=== PATIENT | female | born 1975 | race Caucasian/White ===

== ENCOUNTER 2017-06-22 10:32 | Emergency (ER) | payer OTHER | END 2017-06-22 10:55 | disposition home or self-care (01) | LOC: E/R 10:32 | DX: J30.9 Allergic rhinitis, unspecified (principal); F41.9 Anxiety disorder, unspecified | CPT/HCPCS: 99283; Z7502 ==

== ENCOUNTER 2017-08-05 03:58 | Emergency (ER) | payer OTHER ==
[2017-08-05] MEDS: LORAZEPAM 1 MG TAB PO (05:01)
[2017-08-05] MEDS: SOD CHLORIDE 0.9% 1,000 ML IV (05:03)
[2017-08-05] MEDS: ONDANSETRON 4 MG INJ IV (05:03)
[2017-08-05 05:31] LABS: ADD MAN DIFF? NO
[2017-08-05 05:34] LABS: WHITE BLOOD COUNT 11.9 10^3/ul (4.8-10.8)
[2017-08-05 05:34] LABS: BASOPHIL # 0.1 10^3/ul (0.0-0.1); BASOPHILS % 0.5 % (0.0-2.0); EOSINOPHILS # 0.1 10^3/ul (0.0-0.5); EOSINOPHILS % 0.8 % (0.0-7.0); HEMATOCRIT 39.7 % (37.0-47.0); HEMOGLOBIN 13.3 g/dl (12.0-16.0); LYMPHOCYTES # 3.5 10^3/ul (0.8-2.9); LYMPHOCYTES % 29.7 % (15.0-51.0); MEAN CORPUSCULAR HEMOGLOBIN 28.2 pg (29.0-33.0); MEAN CORPUSCULAR HGB CONC 33.5 g/dl (32.0-37.0); MEAN CORPUSCULAR VOLUME 84.3 fl (82.0-101.0); MEAN PLATELET VOLUME 10.3 fl (7.4-10.4); MONOCYTE # 1.1 10^3/ul (0.3-0.9); MONOCYTES % 9.5 % (0.0-11.0); NEUTROPHILS % 59.1 % (39.0-77.0); PLATELET COUNT 299 10^3/UL (140-415); RED BLOOD COUNT 4.71 10^6/ul (4.20-5.40); RED CELL DISTRIBUTION WIDTH 13.2 % (11.5-14.5)
[2017-08-05 05:42] LABS: ANION GAP 17 (8-16); BLOOD UREA NITROGEN 10 mg/dl (7-20); CALCIUM 9.4 mg/dl (8.4-10.2); CARBON DIOXIDE 26 mmol/L (21-31); CHLORIDE 103 mmol/L (97-110); CREATININE 0.77 mg/dl (0.44-1.00); GLUCOSE 126 mg/dl (70-220); POTASSIUM 3.5 mmol/L (3.5-5.1); SODIUM 142 mmol/L (135-144)
[2017-08-05 05:58] LABS: ADD UMIC YES; UR ASCORBIC ACID NEGATIVE (NEGATIVE); UR BILIRUBIN (Dip) NEGATIVE (NEGATIVE); UR BLOOD (Dip) NEGATIVE (NEGATIVE); UR CLARITY SLIGHTLY CLOUDY (CLEAR); UR COLOR YELLOW (YELLOW); UR GLUCOSE (Dip) NEGATIVE (NEGATIVE); UR KETONES (Dip) NEGATIVE (NEGATIVE); UR LEUKOCYTE ESTERASE (Dip) 1+ Leu/ul (NEGATIVE); UR NITRITE (Dip) NEGATIVE (NEGATIVE); UR RBC 3 /HPF (0-5); UR SPECIFIC GRAVITY (Dip) 1.009 (1.003-1.030); UR SQUAMOUS EPITHELIAL CELL FEW /HPF (FEW); UR TOTAL PROTEIN (Dip) NEGATIVE (NEGATIVE); UR UROBILINOGEN (Dip) NEGATIVE (NEGATIVE); UR WBC 5 /HPF (0-5)
== END 2017-08-05 06:40 | disposition home or self-care (01) ==
LOC: E/R 03:58
DX: R09.89 Other specified symptoms and signs involving the circulatory and respiratory systems (principal); I10 Essential (primary) hypertension
CPT/HCPCS: 36415; 80048; 81001; 85025; 93005; 99285-25

== ENCOUNTER 2018-01-04 22:41 | Emergency (ER) | payer OTHER | END 2018-01-04 23:21 | disposition home or self-care (01) | LOC: FTE 22:41 | DX: R14.2 Eructation (principal); I10 Essential (primary) hypertension; J30.9 Allergic rhinitis, unspecified; K21.9 Gastro-esophageal reflux disease without esophagitis | CPT/HCPCS: 99283 ==

== ENCOUNTER 2018-04-17 06:15 | Emergency (ER) | payer OTHER | END 2018-04-17 07:20 | disposition home or self-care (01) | LOC: FTE 06:15 | DX: F41.9 Anxiety disorder, unspecified (principal); I10 Essential (primary) hypertension | CPT/HCPCS: 99283; Z7502 ==

== ENCOUNTER 2018-04-22 11:32 | Emergency (ER) | payer OTHER | END 2018-04-22 12:48 | disposition home or self-care (01) | LOC: E/R 11:32 | DX: F41.9 Anxiety disorder, unspecified (principal); I10 Essential (primary) hypertension | CPT/HCPCS: 99282; Z7502 ==

== ENCOUNTER 2018-04-23 16:46 | Emergency (ER) | payer OTHER ==
[2018-04-23] MEDS: LORAZEPAM 0.5 MG TAB PO (21:04)
[2018-04-23] MEDS: DIPHENHYDRAMINE 50 MG INJ IM (21:04)
[2018-04-23] MEDS: FAMOTIDINE 20 MG TAB PO (21:04)
== END 2018-04-23 21:17 | disposition home or self-care (01) ==
LOC: FTE 16:46
DX: T78.1XXA Other adverse food reactions, not elsewhere classified, initial encounter (principal); I10 Essential (primary) hypertension; F41.9 Anxiety disorder, unspecified
CPT/HCPCS: 96372; 99284-25

== ENCOUNTER 2018-04-27 13:36 | Emergency (ER) | payer OTHER ==
[2018-04-27] MEDS: LORAZEPAM 1 MG TAB PO (14:10)
[2018-04-27 14:31] LABS: ANION GAP 13 (5-13); BLOOD UREA NITROGEN 18 mg/dl (7-20); CALCIUM 9.7 mg/dl (8.4-10.2); CARBON DIOXIDE 24 mmol/L (21-31); CHLORIDE 104 mmol/L (97-110); CREATININE 0.98 mg/dl (0.44-1.00); Estimated GFR > 60 mL/min (>60); GLUCOSE 102 mg/dl (70-220); POTASSIUM 3.8 mmol/L (3.5-5.1); SODIUM 141 mmol/L (135-144)
== END 2018-04-27 15:13 | disposition home or self-care (01) ==
LOC: E/R 13:36
DX: F41.1 Generalized anxiety disorder (principal); R00.2 Palpitations
CPT/HCPCS: 80048; 93005; 99283-25

== ENCOUNTER 2018-04-29 02:32 | Emergency (ER) | payer OTHER | END 2018-04-29 09:00 | disposition home or self-care (01) | LOC: FTE 02:32 | DX: R22.1 Localized swelling, mass and lump, neck (principal) | CPT/HCPCS: 99282; Z7502 ==